=== PATIENT | female | born 1985 | race Caucasian/White ===

== ENCOUNTER → 2019-03-11 | Outpatient (CLI) | payer MEDICAID ==
--- NOTE | 2019-03-11 16:55 | Diagnostic Imaging Report ---
PROCEDURE: MRI lumbar spine. TECHNIQUE: Multiplanar, multisequence MRI of the lumbar spine was performed without contrast. INDICATION: Low back pain which radiates to the left lower extremity. FINDINGS: Lumbar spinal curvature and alignment are unremarkable. Vertebral body heights and disc spaces are maintained. There is desiccation of the L4-5 disc. No focal disc protrusion is identified. There is no significant stenosis. Conus medullaris is unremarkable at the L1 level. There is no evidence of paraspinous fluid collection. IMPRESSION: Mild L4-5 disc degeneration without evidence of focal protrusion or significant stenosis. Dictated by: Dictated on workstation # [id number]
== END ==
LOC: RAD 14:42
PROVIDERS: ATTEND Pediatrics
DX: M51.16 Intervertebral disc disorders with radiculopathy, lumbar region (principal)
CPT/HCPCS: 72148

== ENCOUNTER 2019-06-03 12:07 | Emergency (ER) | payer OTHER, MEDICAID ==
[~2019-06-03] VITALS: Ht 175.3 cm; Wt 107.9 kg
[2019-06-03] MEDS ORDERED: HYDR-4226 PO (12:29)
--- NOTE | 2019-06-03 12:29 | ED Back Pain ---
General Chief Complaint: Back Problems Stated Complaint: BACK PAIN Nursing Triage Note: PT REPORTS MOPPING FLOORS ON OB LAST NIGHT AN HAVING A FEELING OF A KNIFE BEING DRUG DOWN HERE SPINE. PAIN IS WORSE THIS AM. Nursing Sepsis Screen: No Definite Risk Source of Information: Patient Exam Limitations: No Limitations History of Present Illness Date Seen by Provider: Jun 03, 2019 Time Seen by Provider: 12:27 Initial Comments To ER with reports of midline low back pain that radiates down both legs to the knees. No loss of bowel or bladder control, no loss of sensation of genitals, no fever no history of IV drug use no history of cancer no history of trauma. She is employed here in housekeeping, was sweeping under a bed last night, when she went to stand up she had immediate pain in her low back. She has a lumbar spine MRI done within the past 1-2 months showing degenerative disc mildly at L4-L5 without protrusion. Location: Lumbar Spine, Paraspinous Muscles Timing/Duration: 1-2 Days Severity: Moderate Method of Injury: Unknown Associated Symptoms: lower back pain Allergies and Home Medications Patient Home Medication List Home Medication List Reviewed: Yes Review of Systems Constitutional: see HPI EENTM: see HPI Respiratory: no symptoms reported Cardiovascular: no symptoms reported Genitourinary: no symptoms reported Musculoskeletal: see HPI Skin: no symptoms reported Psychiatric/Neurological: No Symptoms Reported Past Lbeatro-Besxye-Haqxhm Hx Patient Social History Alcohol Use: Denies Use Recreational Drug Use: No Smoking Status: Never a Smoker Recent Foreign Travel: No Contact w/Someone Who Travel: No Recent Infectious Disease Expo: No Recent Hopitalizations: No Physical Abuse: No Sexual Abuse: No Seasonal Allergies Seasonal Allergies: No Past Medical History Surgeries: Yes Tubal Ligation Respiratory: No Cardiac: No Neurological: No Genitourinary: No Gastrointestinal: No Musculoskeletal: No Endocrine: No HEENT: No Cancer: No Psychosocial: No Integumentary: No Blood Disorders: No Physical Exam Vital Signs Vital Signs - First Documented 06/03/19 12:12 Temp 36.6 Pulse 56 Resp 14 B/P (MAP) 133/79 (97) Pulse Ox 98 Capillary Refill : Less Than 3 Seconds Height, Weight, BMI Height: '" Weight: lbs. oz. kg; 35.00 BMI Method: General Appearance: No Apparent Distress, WD/WN Respiratory: No Accessory Muscle Use, No Respiratory Distress Gastrointestinal: Non Tender, Soft Neurologic/Psychiatric: Alert, Oriented x3 Skin: Normal Color, Warm/Dry Progress/Results/Core Measures Results/Orders Vital Signs/I&O 06/03/19 12:12 Temp 36.6 Pulse 56 Resp 14 B/P (MAP) 133/79 (97) Pulse Ox 98 Blood Pressure Mean: 97 Departure Impression Primary Impression: Lumbar radiculopathy Disposition: HOME, SELF-CARE Condition: Stable Departure-Patient Inst. Decision time for Depature: 12:28 Referrals: JIMENEZ HERNANDEZ MD (PCP/Family) Primary Care Physician Patient Instructions: Radiculopathy Add. Discharge Instructions: All discharge instructions reviewed with patient and/or family. Voiced understanding. Scripts Hydrocodone/Acetaminophen ([place] 5-325 Tablet) 1 Each Tablet 1 TAB PO Q6H for Pain MDD 10 TABS for 7 Days, #14 TAB Prov: IVAN NEGRO APRN 06/03/19 IVAN NEGRO APRN Jun 03, 2019 12:29
[2019-06-03 12:36] VITALS: BP 133/79
== END 2019-06-03 12:36 | disposition home or self-care (01) ==
LOC: EDUNIT# 12:07 → ER 12:07
DX: M54.16 Radiculopathy, lumbar region (principal); Z98.51 Tubal ligation status
CPT/HCPCS: 99281

== ENCOUNTER 2019-07-01 08:47 | Outpatient (RCR) | payer MEDICAID, OTHER ==
[~2019-07-01 08:47] MED LIST: HYDR-4226 PO
== END 2019-07-22 08:00 | disposition home or self-care (01) ==
PROVIDERS: ATTEND Pediatrics
DX: M54.6 Pain in thoracic spine (principal)

== ENCOUNTER 2019-08-09 13:20 | Outpatient (RCR) | payer MEDICAID | END 2019-08-30 10:29 | disposition home or self-care (01) | PROVIDERS: ATTEND Pediatrics | DX: M51.16 Intervertebral disc disorders with radiculopathy, lumbar region (principal); M54.6 Pain in thoracic spine; R29.898 Other symptoms and signs involving the musculoskeletal system ==

== ENCOUNTER 2019-08-17 13:05 | Emergency (ER) | payer MEDICAID ==
[~2019-08-17] VITALS: Ht 160 cm; Wt 118.0 kg
--- NOTE | 2019-08-17 14:52 | ED Upper Extremity ---
General Stated Complaint: R MIDDLE FINGER INJ Source: patient Exam Limitations: no limitations History of Present Illness Date Seen by Provider: Aug 17, 2019 Time Seen by Provider: 14:50 Initial Comments Jammed her right middle finger during a possible game on Friday, persistent pain limited flexion. Onset: just prior to arrival Severity: moderate Pain/Injury Location: right 3rd finger Method of Injury: sports injury Modifying Factors: Worse With Pain Medication Allergies and Home Medications Home Medications Hydrocodone/Acetaminophen 1 Each Tablet, 1 TAB PO Q6H Prescribed by: IVAN NEGRO on 06/03/19 1229 Patient Home Medication List Home Medication List Reviewed: Yes Review of Systems Constitutional: see HPI EENTM: see HPI Respiratory: no symptoms reported Cardiovascular: no symptoms reported Genitourinary: no symptoms reported Musculoskeletal: no symptoms reported Skin: no symptoms reported Psychiatric/Neurological: No Symptoms Reported (.) Past Klbcdij-Tiyihn-Gzvwby Hx Patient Social History Recent Hopitalizations: No Seasonal Allergies Seasonal Allergies: No Past Medical History Surgeries: Yes Tubal Ligation Respiratory: No Cardiac: No Neurological: No Genitourinary: No Gastrointestinal: No Musculoskeletal: No Endocrine: No HEENT: No Cancer: No Psychosocial: No Integumentary: No Blood Disorders: No Physical Exam Vital Signs Capillary Refill : Height, Weight, BMI Height: '" Weight: lbs. oz. kg; 35.00 BMI Method: General Appearance: WD/WN, no apparent distress HEENT: PERRL/EOMI, normal ENT inspection Neck: non-tender, full range of motion Respiratory: no respiratory distress, no accessory muscle use Shoulder: normal inspection, non-tender Elbow/Forearm: normal inspection, non-tender, Right Wrist: Yes normal inspection, Yes non-tender Hand: normal inspection, Right, limited ROM (at DIP joint of middle finger right hand) Neurologic/Psychiatric: alert, normal mood/affect, oriented x 3 Skin: normal color, warm/dry Progress/Results/Core Measures Results/Orders My Orders Orders - IVAN NEGRO APRN Hand, Right, 3 Views (08/17/19 13:48) Departure Impression Primary Impression: Avulsion fracture of distal phalanx of finger Qualified Codes: S62.639A - Displaced fracture of distal phalanx of unspecified finger, initial encounter for closed fracture Disposition: HOME, SELF-CARE Condition: Stable Departure-Patient Inst. Decision time for Depature: 14:51 Referrals: JIMENEZ HERNANDEZ MD (PCP/Family) Primary Care Physician Patient Instructions: Finger Fracture, Avulsion Fracture Add. Discharge Instructions: 1. Tylenol and ibuprofen for pain control 2. Follow-up with your doctor in 1-2 weeks for recheck. Wear the splint for the next 2 weeks. Work/School Note: Work Release Form Date Seen in the Emergency Department: Aug 17, 2019 Return to Work: Aug 18, 2019 Other Restrictions Listed Below: Finger in splint for 2 weeks IVAN NEGRO APRN Aug 17, 2019 14:52 POS
--- NOTE | 2019-08-17 14:52 | Diagnostic Imaging Report ---
INDICATION: Trauma to 3rd digit playing baseball. Right hand. FINDINGS: There is a small avulsion injury noted along the base of the distal phalanx of the 3rd digit along the thenar side. Overall alignment of the joints are good. Thickening surfaces are smooth. No dislocation. No radiopaque foreign body. IMPRESSION: Small avulsion injury along the base of the thenar aspect of the distal phalanx of the 3rd digit. Dictated by: Dictated on workstation # [id number]
[2019-08-17 15:03] VITALS: BP 137/68
--- OUTSIDE RECORDS SUMMARY | 2019-09-11 19:55 | XMS REPORT | Continuity of Care Document ---
Author Organization Unknown Address Unknown Phone Unavailable Allergies There is no data. Medications There is no data. Problems Date Dx Coded Attending Type Code Diagnosis Diagnosed By JIMENEZ HERNANDEZ MD, Ot M54.6 PAIN IN THORACIC SPINE 03/12/2019 JIMENEZ HERNANDEZ MD, Ot M51.16 INTERVERTEBRAL DISC DISORDERS W RADICULO 06/03/2019 IVAN NEGRO APRN Ot M54.16 RADICULOPATHY, LUMBAR REGION 06/03/2019 IVAN NEGRO APRN Ot M54 .5 LOW BACK PAIN 06/03/2019 IVAN NEGRO APRN Ot Z98.51 TUBAL LIGATION STATUS 06/03/2019 JIMENEZ HERNANDEZ MD, Ot M51.16 INTERVERTEBRAL DISC DISORDERS W RADICULO 06/07/2019 IVAN NEGRO APRN Ot M54.16 RADICULOPATHY, LUMBAR REGION 06/07/2019 IVAN NEGRO STATISTICAL FINANCIAL ANALYST Ot M54 .5 LOW BACK PAIN 06/07/2019 IVAN NEGRO STATISTICAL FINANCIAL ANALYST Ot Z98.51 TUBAL LIGATION STATUS 06/07/2019 IAVN NEGRO APRN Ot M54.16 RADICULOPATHY, LUMBAR REGION 06/07/2019 IVAN NEGRO STATISTICAL FINANCIAL ANALYST Ot M54 .5 LOW BACK PAIN 06/07/2019 IVAN NEGRO STATISTICAL FINANCIAL ANALYST Ot Z98.51 TUBAL LIGATION STATUS 07/15/2019 JIMENEZ HERNANDEZ MD, Ot M54.6 PAIN IN THORACIC SPINE 07/16/2019 JIMENEZ HERNANDEZ MD, Ot M54.6 PAIN IN THORACIC SPINE 08/04/2019 JIMENEZ HERNANDEZ MD, Ot M51.16 INTERVERTEBRAL DISC DISORDERS W RADICULO 08/04/2019 JIMENEZ HERNANDEZ MD, Ot M54.6 PAIN IN THORACIC SPINE 08/04/2019 JIMENEZ HERNANDEZ MD, Ot R29.898 OT SYMPTOMS AND SIGNS INVOLVING THE MUS 08/09/2019 JIMENEZ HERNANDEZ MD, Ot M51.16 INTERVERTEBRAL DISC DISORDERS W RADICULO 08/09/2019 JIMENEZ HERNANDEZ MD, Ot M54.6 PAIN IN THORACIC SPINE 08/09/2019 JIMENEZ HERNANDEZ MD Ot R29.898 OTH SYMPTOMS AND SIGNS INVOLVING THE MUS 08/17/2019 IVAN NEGRO APRN Ot M79.644 PAIN IN RIGHT FINGER(S) 08/17/2019 IVAN NEGRO APRN Ot S62.632A DISP FX OF DISTAL PHALANX OF RIGHT MIDDL 08/17/2019 IVAN NEGRO APRN Ot W23.1XXA CAUGHT, CRUSH, JAMMED, OR PINCHED BETW S 08/17/2019 IVAN NEGRO APRN Ot Z98.51 TUBAL LIGATION STATUS 08/25/2019 JIMENEZ HERNANDEZ MD Ot M51.16 INTERVERTEBRAL DISC DISORDERS W RADICULO 08/25/2019 JIMENEZ HERNANDEZ MD, Ot M54.6 PAIN IN THORACIC SPINE 08/25/2019 JIMENEZ HERNANDEZ MD Ot R29.898 OTH SYMPTOMS AND SIGNS INVOLVING THE MUS Procedures There is no data. Results There is no data. Encounters ACCT No. Visit Date/Time Discharge Status Pt. Type Provider Facility Loc./Unit Complaint [id number] 08/17/2019 13:06:00 15:03:00 DIS Emergency IVAN NEGRO APRN [facility] ER R MIDDLE FINGER INJ [id number] 08/09/2019 13:20:00 23:59:59 CLS Outpatient JIMENEZ HERNANDEZ MD [facility] REHAB LOW BACK PAIN [id number] 07/01/2019 08:47:00 08:00:00 DIS Outpatient JIMENEZ HERNANDEZ MD [facility] REHAB ACUTE BILATERAL THORACI C BACK PAIN [id number] 06/03/2019 12:07:00 12:36:00 DIS Emergency IVAN NEGRO APRN [facility] ER BACK PAIN [id number] 03/11/2019 14:42:00 23:59:59 CLS Outpatient JIMENEZ HERNANDEZ MD [facility] RAD LUMBAR RADICULOPATHY
== END 2019-08-17 15:03 | disposition home or self-care (01) ==
LOC: EDUNIT# 13:05 → ER 13:06
DX: S62.632A Displaced fracture of distal phalanx of right middle finger, initial encounter for closed fracture (principal); Z98.51 Tubal ligation status; W23.1XXA Caught, crushed, jammed, or pinched between stationary objects, initial encounter
CPT/HCPCS: 73130

== ENCOUNTER 2019-09-13 19:33 | Emergency (ER) | payer MEDICAID ==
[~2019-09-13] VITALS: Ht 162.5 cm; Wt 107.1 kg
[2019-09-13] MEDS ORDERED: IBUPROFEN 800 MG (MOTRIN) TAB PO STA (20:48)
--- NOTE | 2019-09-13 20:56 | ED Back Pain ---
General Chief Complaint: Back Problems Stated Complaint: LOWER BACK PAIN History of Present Illness Date Seen by Provider: Sep 13, 2019 Time Seen by Provider: 20:35 Initial Comments 33 Year old female presents for acute on chronic low back pain since 09/07/19 and radicular pain down right leg. She denies any acute injuries to her low back. She's had chronic L4 5 radiculopathy on the right. She denies any bowel or bladder retention or incontinence. Chief taking ibuprofen 800 mg, last dose was 0300 today. She's been sleeping most the day which has helped with her pain. Location: Lumbar Spine Timing/Duration: 5-6 Days Severity: Moderate Pain/Injury Location: Back Radiation: Buttocks (right), Upper Legs (posterior right) Method of Injury: Unknown Modifying Factors: Improves With Rest Associated Symptoms: muscle spasms; No fever, No weakness, No numbness in legs/feet, No tingling in legs/feet; lower back pain; No loss of bladder control, No loss of bowel control Allergies and Home Medications Allergies Coded Allergies: Sulfa (Sulfonamide Antibiotics) (Verified Allergy, Unknown, 09/13/19) Home Medications Ciprofloxacin HCl 500 Mg Tablet, 500 MG PO BID Prescribed by: ABEBE GUAN on 09/13/192148 Hydrocodone/Acetaminophen 1 Each Tablet, 1 TAB PO Q6H Prescribed by: IVAN NEGRO on 06/03/191228 Prednisone 20 Mg Tab, 20 MG PO DAILY Take 3 tablets once daily for 3 days, take 2 tablets one time daily for 3 days, take one tablet once daily for 3 days. Prescribed by: ABEBE GUAN on 09/13/192148 Patient Home Medication List Home Medication List Reviewed: Yes Review of Systems Constitutional: no symptoms reported Musculoskeletal: see HPI, back pain All Other Systems Reviewed Negative Unless Noted: Yes Past Anbewzz-Aojdzz-Jrdxvw Hx Past Med/Social Hx: Reviewed Nursing Past Med/Soc Hx Patient Social History Recent Foreign Travel: No Contact w/Someone Who Travel: No Recent Hopitalizations: No Seasonal Allergies Seasonal Allergies: No Past Medical History Surgeries: Yes Tubal Ligation Respiratory: No Cardiac: No Neurological: No Genitourinary: No Gastrointestinal: No Musculoskeletal: No Endocrine: No HEENT: No Cancer: No Psychosocial: No Integumentary: No Blood Disorders: No Physical Exam Vital Signs Vital Signs - First Documented 09/13/19 20:05 Temp 37.2 Pulse 99 Resp 18 B/P (MAP) 124/88 (100) Pulse Ox 94 Capillary Refill : Height, Weight, BMI Height: '" Weight: lbs. oz. kg; 46.00 BMI Method: General Appearance: No Apparent Distress, WD/WN Neck: Full Range of Motion, Normal Inspection, Non Tender, Supple Cardiovascular: Regular Rate, Rhythm, No Murmur, Normal Peripheral Pulses Respiratory: Chest Non Tender, Lungs Clear, Normal Breath Sounds Gastrointestinal: Normal Bowel Sounds, Non Tender, Soft Back: Normal Inspection, CVA Tenderness (R), Decreased Range of Motion (sec ondary to pain), Muscle Spasm (right ), Other (Power V/V L4-S1, Neg SLR. ) Extremity: Normal Capillary Refill, Normal Inspection, Normal Range of Motion, Pelvis Stable, Other (steady gait, able to find her toes and heels.) Neurologic/Psychiatric: Alert, Oriented x3, No Motor/Sensory Deficits, Normal Mood/Affect Progress/Results/Core Measures Results/Orders Lab Results Laboratory Tests Test 09/13/19 21:09 Range/Units Urine Color YELLOW Urine Clarity CLOUDY Urine pH 5.5 5-9 Urine Specific [place] >=1.030 1.016-1.022 Urine Protein NEGATIVE NEGATIVE Urine Glucose (UA) NEGATIVE NEGATIVE Urine Ketones NEGATIVE NEGATIVE Urine Nitrite NEGATIVE NEGATIVE Urine Bilirubin NEGATIVE NEGATIVE Urine Urobilinogen 0.2 < = 1.0 MG/DL Urine Leukocyte Esterase 1+ H NEGATIVE Urine RBC (Auto) NEGATIVE NEGATIVE Urine RBC NONE /HPF Urine WBC 5-10 H /HPF Urine Squamous Epithelial Cells TNTC H /HPF Urine Crystals NONE /LPF Urine Bacteria LARGE H /HPF Urine Casts NONE /LPF Urine Mucus NEGATIVE /LPF Urine Culture Indicated YES My Orders Orders - ABEBE GUAN Ua Culture If Indicated (09/13/19 19:45) Ibuprofen Tablet (Motrin Tablet) (09/13/19 20:48) Urine Culture (09/13/19 21:09) Ciprofloxacin Tablet (Cipro Tablet) (09/13/19 21:49) Vital Signs/I&O 09/13/19 09/13/19 09/13/19 20:05 20:32 21:59 Temp 37.2 37.2 Pulse 99 99 63 Resp 18 18 20 B/P (MAP) 124/88 (100) 124/88 (100) 124/86 (100) Pulse Ox 94 94 99 Departure Impression Primary Impression: Lumbar radiculopathy Additional Impressions: Back pain Qualified Codes: M54.41 - Lumbago with sciatica, right side UTI (urinary tract infection) Qualified Codes: N30.01 - Acute cystitis with hematuria Disposition: HOME, SELF-CARE Condition: Improved Departure-Patient Inst. Decision time for Depature: 21:45 Referrals: JIMENEZ HERNANDEZ MD (PCP/Family) Primary Care Physician Patient Instructions: Low Back Pain (DC), Radiculopathy (DC), Urinary Tract Infection, Adult (DC) Add. Discharge Instructions: Increase water intake, 16 ounces every 2 hours while awake. Alternate between ibuprofen 600 mg and Tylenol 650 mg every 4 hours for pain or fever Take steroids and antibiotic as prescribed. Follow-up with your primary care provider if symptoms in her back are not improving or worsen. You may use Biofreeze or [place] balm to your low back as needed for pain. Return to the emergency department for new, urgent health care needs. All discharge instructions reviewed with patient and/or family. Voiced understanding. Scripts Prednisone (Prednisone) 20 Mg Tab 20 MG PO DAILY, #18 TAB 0 Refills Take 3 tablets once daily for 3 days, take 2 tablets one time daily for 3 days, take one tablet once daily for 3 days. Prov: ABEBE GUAN 09/13/19 Ciprofloxacin HCl (Ciprofloxacin HCl) 500 Mg Tablet 500 MG PO BID, #10 TAB 0 Refills Prov: ABEBE GUAN 09/13/19 ABEBE GUAN Sep 13, 2019 20:56
[2019-09-13 21:18] LABS: BILIRUBIN,URINE NEGATIVE (NEGATIVE); CLARITY,URINE CLOUDY; COLOR,URINE YELLOW; GLUCOSE, URINE (UA) NEGATIVE (NEGATIVE); KETONES,URINE NEGATIVE (NEGATIVE); LEUKOCYTE ESTERASE ,URINE 1+ (NEGATIVE); NITRITE,URINE NEGATIVE (NEGATIVE); PH,URINE 5.5 (5-9); PROTEIN,URINE NEGATIVE (NEGATIVE)
[2019-09-13 21:37] LABS: SQUAMOUS EPITHELIAL CELL,UR TNTC /HPF
[2019-09-13 21:39] LABS: BACTERIA,URINE LARGE /HPF
[2019-09-13] MEDS ORDERED: PRD20T PO (21:49)
[2019-09-13] MEDS ORDERED: CIPROFLOXACIN 500 MG (CIPRO) TABLET PO STA (21:49)
[2019-09-13] MEDS ORDERED: CIPR500T4 PO (21:49)
[2019-09-13 21:59] VITALS: BP 124/86
== END 2019-09-13 22:01 | disposition home or self-care (01) ==
LOC: EDUNIT# 19:33 → ER 19:34
DX: M54.16 Radiculopathy, lumbar region (principal); N39.0 Urinary tract infection, site not specified; Z88.2 Allergy status to sulfonamides; Z98.51 Tubal ligation status
CPT/HCPCS: 81000; 87088; 99283